=== PATIENT | male | born 1995 | race Caucasian/White ===

== ENCOUNTER 2022-12-10 05:30 | Inpatient (IN) | payer MEDICAID ==
[2022-12-10] VITALS (11 sets, daily range): BP systolic 114–133; BP diastolic 71–75; PULSE 59–82; RESP 16; TEMP 97.7–98.3; O2SAT 95–99
[~2022-12-10] VITALS: Ht 198.1 cm; Wt 136.1 kg
--- NOTE | 2022-12-10 05:40 | NUR ---
Called poison control regarding patient taking 30-40 300mg gabapentin, 10 shots liquor, 6 pack beer. Per poison control, recommendations for 4-6 hour observation, labs: tylenol, aspirin, and alcohol levels and baseline EKG. ERMD was notified and was agreeable.
--- NOTE | 2022-12-10 05:45 | NUR ---
27 YO M BIBA DUE TO SUICIDE ATTEMPT BY TAKING 30-40 GABAPENTIN 300 MG, DRINKING 10 SHOTS ALCOHOL, AND DRINKING 6 PACK IN BEER. PT ARRIVED BY AMBULANCE IN SOFT RESTRAINTS. PT NON COMBATIVE AND QUIET DEMEANOR UPON ARRIVAL. ON 5150 72 HR HOLD. PT ON BEDSIDE GEOPHYSICAL ENGINEER. 2LPM/NC APPLIED FOR SPO2 91% SUSTAINED ON ROOM AIR. PT WITHIN VIEW OF NURSES STATION. NKDA NO MED HX
[2022-12-10] MEDS ORDERED: NACL 0.9% 1,000 ML IV ONE (05:50)
--- NOTE | 2022-12-10 05:57 | NUR ---
PT ON BEDSIDE MONITOR. 2L O2 NC APPLIED. SPO2 98%. RESP EVEN AND UNLABORED. ALL PT BELONGINGS BAGGED AND TAGGED. ITEMS FROM ROOM EXCEPT LABORER DRIVER WIRES WERE REMOVED FOR PT SAFTEY. PT ACTING APPROPIATELY AND ANSWERING ALL QUESTIONS.
[2022-12-10 06:00] LABS: BASOPHILS # (AUTO) 0.1 K/uL (0.00-0.22); EOSINOPHILS # (AUTO) 0.4 K/uL (0-0.4); EOSINOPHILS % (AUTO) 5.9 % (0.0-4.0); HEMATOCRIT 41.8 % (36-52); LYMPHOCYTES # (AUTO) 2.1 K/uL (2.0-11.5); LYMPHOCYTES % (AUTO) 34.4 % (20.5-51.1); MEAN CORPUSCULAR HEMOGLOBIN 30 pg (27-31); MEAN CORPUSCULAR HGB CONC 34 g/dL (33-37); MEAN CORPUSCULAR VOLUME 88.1 fL (80-94); MONOCYTES # (AUTO) 0.6 K/uL (0.8-1.0); MONOCYTES % (AUTO) 9.1 % (1.7-9.3); NEUTROPHILS % (AUTO) 49.6 % (42.2-75.2); PLATELET COUNT (AUTO) 263 K/uL (140-450); RED BLOOD CELL COUNT(AUTO) 4.75 MIL/uL (4.20-6.10); RED CELL DISTRIBUTION WIDTH 13.6 % (11.6-13.7); WHITE BLOOD COUNT (AUTO) 6.1 K/uL (4.8-10.8)
--- NOTE | 2022-12-10 06:00 | NUR ---
COVID SWABS COLLECTED AND SENT TO LAB
[2022-12-10 06:14] LABS: ANION GAP 13.4 (8-16); ASPARTATE AMINOTRANSFERASE 20 U/L (15-37); CARBON DIOXIDE 28.9 mmol/L (21-32); CHLORIDE 103 mmol/L (98-107); CREATININE 0.9 mg/dL (0.6-1.3); GFR ARICAN-AMERICAN 128 mL/min (>90); GLUCOSE 95 mg/dL (74-106); POTASSIUM 3.3 mmol/L (3.5-5.1); SODIUM SERUM 142 mmol/L (136-145); TOTAL BILIRUBIN 0.4 mg/dL (0.0-1.0); UREA NITROGEN, BLOOD 11 mg/dL (7-18)
[2022-12-10 06:16] LABS: SALICYLATE < 2.8 mg/dL (2.8-20.0)
--- NOTE | 2022-12-10 07:14 | NUR ---
Pt report given to SUKUMAR ALEXANDER. Transfer of care at this time.
--- NOTE | 2022-12-10 07:16 | NUR ---
CONTINUATION OF CARE AT THIS POINT. REPORT RECIEVED FROM CATHERINE PATINO.
--- NOTE | 2022-12-10 07:56 | NUR ---
PT SLEEPING IN UPRIGHT POSITION, AROUSABLE TO TOUCH, CHEST RISE/FALL NOTED, ON HOSPITALITY HOUSEKEEPER, AWAITING FOR BED ASSIGNMENT TO TELE. SAFETY MAINTAINED, CALL LIGHT WITHIN REACH.
--- NOTE | 2022-12-10 08:56 | NUR ---
MOJGAN FROM POISON CONTROL CALLED FOR UPDATED VS, STATUS/CONDITION, CONTINUE MONITORING WITH SUPPORTIVE CARE TILL BASELINE.
--- NOTE | 2022-12-10 10:02 | NUR ---
NO CHANGE IN CONDITION, PT SLEEPING IN UPRIGHT POSITION, AROUSABLE TO TOUCH, ON MARKETING COORDINATOR, VS: BP117/62, P 60, R13, O2-98/2L, SAFETY MAINTAINED. CALL LIGHT IN REACH. AWAITING ADMIT BED ASSIGNMENT.
[2022-12-10] MEDS ORDERED: MAG SULF 2000 MG/WATER PREMIX 50 ML IV PRN (11:10)
[2022-12-10] MEDS ORDERED: ONDANSETRON 4 MG/2 ML VIAL IVP PRN (11:10)
[2022-12-10] MEDS ORDERED: ACETAMINOPHEN 325 MG TAB PO PRN (11:10)
[2022-12-10] MEDS ORDERED: POTASSIUM CHLORIDE 10 MEQ TABER PO PRN (11:10)
[2022-12-10] MEDS ORDERED: MORPHINE SULFATE 2 MG/ML SYR IVP PRN (11:10)
[2022-12-10] MEDS ORDERED: DOCUSATE SODIUM 100 MG GELCAP PO PRN (11:10)
[2022-12-10] MEDS ORDERED: LORazepam 2 MG/ML VIAL IVP PRN (11:10)
--- NOTE | 2022-12-10 11:11 | NUR ---
PT SLEEPING, CHEST RISE/FALL UNLABORED NOTED, AT BEDSIDE CRYING. PT ON REFINERY TECHNICIAN, SAFETY MAINTAINED, CALL LIGHT WITHIN REACH.
[2022-12-10 12:19] LABS: BARBITURATE, URINE NEGATIVE ng/ml (NEG <=200); BENZODIAZEPINE, URINE NEGATIVE ng/mL (NEG <=200); CANNABINOID, URINE POSITIVE ng/mL (NEG <=50); COCAINE, URINE NEGATIVE ng/mL (NEG <=300); OPIATE, URINE NEGATIVE ng/mL (NEG <=2000); PHENCYCLIDINE SCREEN,URINE NEGATIVE ng/mL (NEG <=25)
--- NOTE | 2022-12-10 13:11 | NUR ---
PT SLEEPING IN UPRIGHT POSITION, AROUSABLE TO TOUCH, CHEST RISE/FALL NOTED, ON TRANSIT COACH OPERATOR, AWAITING FOR BED ASSIGNMENT TO TELE. SAFETY MAINTAINED, CALL LIGHT WITHIN REACH.
--- NOTE | 2022-12-10 15:05 | NUR ---
NO CHANGE IN CONDITION. PT SLEEPING, CHEST RISE/FALL NOTED, UNLABORED BREATHING. SAFETY MAINTAINED, CALL LIGHT WITHIN REACH.
--- NOTE | 2022-12-10 17:01 | NUR ---
PT AWAKE, AT BEDSIDE, PT REQUESTED A SANDWISH, TOLERATED WELL. AOX4,NAD NOTED, ON AERONAUTICAL PROJECT ENGINEER, CALL LIGHT IN REACH.
--- NOTE | 2022-12-10 19:16 | NUR ---
Pt report given to SAMARA PATINO. Transfer of care at this time.
--- NOTE | 2022-12-10 19:30 | NUR ---
Pt Hand over from AM shift. On bed, comfortably sleeping with rise and fall of chest noted.
--- NOTE | 2022-12-10 19:35 | NUR ---
Note adrian in ED - 12/10/22 at 2039 by [email or web address] Pt Hand over from AM shift. Comfortbalty sleeping with rise and fall of chest noted.
--- NOTE | 2022-12-10 20:39 | NUR ---
Pt asleep comfortably at bed with rise and fall of chest noted.
--- NOTE | 2022-12-10 21:00 | NUR ---
Pt to [facility] via bj with EMT and RN
--- NOTE | 2022-12-10 22:00 | NUR ---
27/M Admitted from ED with CHIEF COMPLAINT OF OVERDOSE. PER PATIENT, TOOK ABOUT 30-40 GABAPENTIN 300 MG PO TABS. 5150 PRESENT ON ADMISSION ISSUED ON 12/10/22 AT 0507. VSS STABLE. HEAD TO TOE ASSESSMENT COMPELTED WITH BULMARO PATINO. INITIAL ADMISSION DOCUMENTATION COMPLETED. PERSONAL BELONGINGS WITH SECURITY. PER ED SAMARA PATINO, MRSA SWAB HAS BEEN COLLECTED. ORIENTED TO BED, BATHROOM, VISITING HOURS, AND ID BRACELET ON. 1:1 SITTER PRESENT.
--- NOTE | 2022-12-10 22:00 | NUR ---
Patient's Plan of Care was discussed and reviewed with AMANDA MERCEDES
[2022-12-10] MEDS: ZOLPIDEM 10 MG TAB PO PRN (22:17)
--- NOTE | 2022-12-10 22:20 | NUR ---
ADMINISTERED POTASSIUM CHLORIDE 40 MEQ D/T K+ AT 3.3 PER MD ORDER. TOLERATED WELL. DENIES PAIN AT THIS TIME. RESPIRATIONS EVEN AND UNLABORED WITH NO APPARENT S/SX OF ACUTE DISTRESS. ALL SAFETY MEASURES IN PLACE. BED IN LOW/LOCKED POSITION. SIDE RAILS X2 UP. 1:1 SITTER PRESENT. WILL CONTINUE TO MONITOR.
[2022-12-11] VITALS: BP 117/72; PULSE 66; RESP 14; TEMP 98.5; O2SAT 98
--- NOTE | 2022-12-11 01:00 | NUR ---
STABLE AND ASLEEP WITH NO FACIAL GRIMACING. CHEST IS RISING AND FALLING SYMMETRICALLY. RESPIRATIONS EVEN AND UNLABORED WITH NO APPARENT S/SX OF ACUTE DISTRESS. ALL SAFETY MEASURES IN PLACE. BED IN LOW/LOCKED POSITION. SIDE RAILS X2 UP. 1:1 SITTER PRESENT. WILL CONTINUE TO MONITOR.
--- NOTE | 2022-12-11 03:00 | NUR ---
PATIENT IS STABLE AND ASLEEP IN SUPINE POSITION WITH NO FACIAL GRIMACING. FLACC=0. CHEST IS RISING AND FALLING SYMMETRICALLY. RESPIRATIONS EVEN AND UNLABORED WITH NO APPARENT S/SX OF ACUTE DISTRESS. ALL SAFETY MEASURES IN PLACE. BED IN LOW/LOCKED POSITION. SIDE RAILS X2 UP. 1:1 SITTER PRESENT. WILL CONTINUE TO MONITOR.
[2022-12-11 04:00] VITALS: BP 115/50; PULSE 61; PULSE 66; RESP 16; TEMP 97.7; O2SAT 99
--- NOTE | 2022-12-11 05:00 | NUR ---
STABLE AND ASLEEP WITH NO FACIAL GRIMACING. FLACC=0. CHEST IS RISING AND FALLING SYMMETRICALLY. RESPIRATIONS EVEN AND UNLABORED WITH NO APPARENT S/SX OF ACUTE DISTRESS. ALL NEEDS MET AT THIS TIME. ALL SAFETY MEASURES IN PLACE. BED IN LOW/LOCKED POSITION. SIDE RAILS X2 UP. 1:1 SITTER PRESENT. WILL CONTINUE TO MONITOR.
[2022-12-11 06:18] LABS: BASOPHILS # (AUTO) 0.1 K/uL (0.00-0.22); EOSINOPHILS # (AUTO) 0.5 K/uL (0-0.4); EOSINOPHILS % (AUTO) 7.5 % (0.0-4.0); HEMATOCRIT 41.2 % (36-52); HEMOGLOBIN 13.8 g/dL (12.0-18.0); LYMPHOCYTES # (AUTO) 1.7 K/uL (2.0-11.5); MEAN CORPUSCULAR HEMOGLOBIN 30 pg (27-31); MEAN CORPUSCULAR HGB CONC 33 g/dL (33-37); MEAN CORPUSCULAR VOLUME 88.6 fL (80-94); MONOCYTES # (AUTO) 0.5 K/uL (0.8-1.0); MONOCYTES % (AUTO) 8.5 % (1.7-9.3); NEUTROPHILS # (AUTO) 3.3 K/uL (1.8-7.7); PLATELET COUNT (AUTO) 232 K/uL (140-450); RED BLOOD CELL COUNT(AUTO) 4.65 MIL/uL (4.20-6.10); RED CELL DISTRIBUTION WIDTH 13.6 % (11.6-13.7); WHITE BLOOD COUNT (AUTO) 6.1 K/uL (4.8-10.8)
[2022-12-11 06:34] LABS: CARBON DIOXIDE 29.1 mmol/L (21-32); CREATININE 0.9 mg/dL (0.6-1.3); POTASSIUM 4.1 mmol/L (3.5-5.1)
--- NOTE | 2022-12-11 07:01 | NUR ---
ENDORSED PATIENT TO CARLA RN FOR CONTINUITY OF CARE. PATIENT IS STABLE. 1:1 SITTER PRESENT.
--- NOTE | 2022-12-11 07:52 | NUR ---
RECEIVED PATIENT FROM PM NURSE FOR CONTINUATION OF CARE. PATIENT SEEN ON BED ASLEEP NORMAL RISE AND FALL OF CHEST NOTED. PATIENT'S VITALS STABLE. PATIENT SITTER PRESENT
[2022-12-11 08:00] VITALS: BP 110/69; PULSE 58; PULSE 69; RESP 18; TEMP 97.9; O2SAT 99
--- NOTE | 2022-12-11 09:03 | NUR ---
PATIENT HAS BEEN SCREENED AND CATEGORIZED LOW NUTRITION RISK. PATIENT WILL BE SEEN WITHIN 7 DAYS OF ADMISSION. 12/17/[address]
[2022-12-11] MEDS: MULTIVITAMIN 1 TAB PO SCH (09:53)
[2022-12-11] MEDS: THIAMINE 100 MG TAB PO SCH (09:53)
[2022-12-11] MEDS: FOLIC ACID 1 MG TAB PO SCH (09:53)
[2022-12-11 12:00] VITALS: BP 132/79; PULSE 62; PULSE 74; RESP 18; TEMP 97.3; O2SAT 97
--- NOTE | 2022-12-11 13:00 | NUR ---
PATIENT SEEN ON BED ASLEEP. NORMAL RISE AND FALL OF CHEST. PATIENT WOKEN UP TO CHECK TELEMETRY LEADS. PATIENT VERBALIZED NO CONCERNS
[2022-12-11 16:00] VITALS: BP 120/62; PULSE 59; RESP 16; TEMP 97.7; O2SAT 98
--- NOTE | 2022-12-11 19:00 | NUR ---
ENDORSED PATIENT TO PM NURSE FOR CONTINUATION OF CARE
--- NOTE | 2022-12-11 19:00 | NUR ---
ASSUMED CONTINUITY OF CARE. INITIAL ASSESSMENT DONE. CALM, QUIET, COOPERATIVE. NO SUICIDAL IDEATION OBSERVED. NO C/O PAIN. NO SOB, NOTED. SPEECH CLEAR. SKIN WARM, DRY, AND INTACT. SALINE ON RIGHT AC GAUGE #20 PATENT AND INTACT. KEEP COMFORTABLE ON BED. KEEP ENVIRONMENT SAFE. WILL MONITOR CLOSELY (1:1) FOR SUICIDAL PREVENTION.
--- NOTE | 2022-12-11 19:16 | NUR ---
PT. CAME AND HAD CONVERSATION WITH THE PT.. NO UNTOWARD BEHAVIOR OBSERVED.
[2022-12-11 20:00] VITALS: BP 124/90; PULSE 51; PULSE 60; RESP 16; TEMP 98.5; O2SAT 98
[2022-12-11] MEDS: ZOLPIDEM 10 MG TAB PO PRN (20:58)
--- NOTE | 2022-12-11 20:58 | NUR ---
ASKED FOR SLEEPING PILLS. MEDICATED PER MD ORDER. TOLERATED WELL. NO INITIAL DRUG REACTION NOTED. WILL MONITOR.
--- NOTE | 2022-12-11 21:38 | NUR ---
PT. LEFT. PT. SITTING ON THE SIDE OF THE BED. NO SUICIDAL IDEATION OBSERVED. Addendum: 12/11/22 at 2145 by Kan Dorantes LVN LVN WRONG ENTRY. ENTERED WRONG TIME. ACTUAL TIME WAS 2053.
--- NOTE | 2022-12-11 22:30 | NUR ---
SLEEPING WELL AT THIS TIME. NO RESPIRATORY DISTRESS NOTICED. CONTINUE TO MONITOR CLOSELY 1:1.
[2022-12-12] VITALS: BP 118/73; PULSE 51; RESP 16; TEMP 97.3; O2SAT 98
--- NOTE | 2022-12-12 03:00 | NUR ---
SEEN ASLEEP. NO SOB, NOTED. KEEP COMFORTABLE ON BED.
--- NOTE | 2022-12-12 05:58 | NUR ---
THORACIC SURGEON CAME FOR AM BLOOD DRAW. CALM AND COOPERATIVE. TOLERATED WELL. NO C/O PAIN. CONTINUE MONITORING CLOSELY 1:1.
[2022-12-12 06:29] LABS: BASOPHILS # (AUTO) 0.1 K/uL (0.00-0.22); BASOPHILS % (AUTO) 1.1 % (0.0-2.0); EOSINOPHILS # (AUTO) 0.4 K/uL (0-0.4); EOSINOPHILS % (AUTO) 6.2 % (0.0-4.0); HEMATOCRIT 42.9 % (36-52); HEMOGLOBIN 14.4 g/dL (12.0-18.0); LYMPHOCYTES # (AUTO) 1.8 K/uL (2.0-11.5); LYMPHOCYTES % (AUTO) 27.9 % (20.5-51.1); MEAN CORPUSCULAR HEMOGLOBIN 30 pg (27-31); MEAN CORPUSCULAR HGB CONC 34 g/dL (33-37); MEAN CORPUSCULAR VOLUME 89.2 fL (80-94); MONOCYTES # (AUTO) 0.6 K/uL (0.8-1.0); MONOCYTES % (AUTO) 8.6 % (1.7-9.3); NEUTROPHILS # (AUTO) 3.7 K/uL (1.8-7.7); NEUTROPHILS % (AUTO) 56.2 % (42.2-75.2); PLATELET COUNT (AUTO) 250 K/uL (140-450); RED BLOOD CELL COUNT(AUTO) 4.81 MIL/uL (4.20-6.10); RED CELL DISTRIBUTION WIDTH 13.6 % (11.6-13.7); WHITE BLOOD COUNT (AUTO) 6.6 K/uL (4.8-10.8)
[2022-12-12 06:50] LABS: ANION GAP 8.4 (8-16); CARBON DIOXIDE 30.4 mmol/L (21-32); CREATININE 0.9 mg/dL (0.6-1.3); POTASSIUM 3.8 mmol/L (3.5-5.1)
--- NOTE | 2022-12-12 07:00 | NUR ---
RECEIVED PT FROM WEIGHER PRODUCTION FOR CONTINUITY OF CARE. ALERT AND ORIENTED X 4. RESP. EVEN AND UNLABORED. IV SITE INTACT. ON SALINE LOCK. ON 1:1 SITTER. NO BEHAVIORAL PROBLEM AT THIS TIME. NO C/O PAIN OR DISCOMFORT. WILL CONTINUE TO MONITOR.
[2022-12-12 08:00] VITALS: BP 125/77; PULSE 52; RESP 20; TEMP 97.9; O2SAT 100
[2022-12-12] MEDS: MULTIVITAMIN 1 TAB PO SCH (08:21)
[2022-12-12] MEDS: THIAMINE 100 MG TAB PO SCH (08:21)
[2022-12-12] MEDS: FOLIC ACID 1 MG TAB PO SCH (08:21)
--- NOTE | 2022-12-12 08:21 | NUR ---
SCHEDULED MEDICATIONS GIVEN. TOLERATED WELL.
--- NOTE | 2022-12-12 08:38 | NUR ---
Technical Buyer: Patient continues to have an active 5150 that will tomorrow morning. The patient has an order for a telepsyche. There is also a clinical packet that was sent to the [facility] for assistance with placement. Telephone call made to SUKUMAR Laura about the status of the telepsyche. Per nurse, the telepsyche has not been called, but she will call in for the telepsyche today. I advised her that the 5150 hold will tomorrow, so the telepsyche remains necessary. Follow up call made to Yamilka at the [facility]. per Yamilka, the patient has [facility] [place], therefore the clinical packet was sent out to th followin. Georgette Hanson 2. [facility] 3. [facility] 4. [facility] 5. [place] marketing services manager will continue to remain available for the patient as needs arise.
--- NOTE | 2022-12-12 10:05 | NUR ---
Permit Specialist: Met with patient ate bedside. I introduced myself to him and advised him of the follow up that I had done this morning thus far. He was pleasant and engaging. I inquired about his current mental state. Per patient, he states he is not having any thoughts of self harm or harm to others. I inquired about his , and he stated she has not come in yet, but she would be by later. At this time, the patient is aware that telepsyche is still pending.
--- NOTE | 2022-12-12 11:55 | NUR ---
SEEN BY DR. RILEY.
--- NOTE | 2022-12-12 15:50 | NUR ---
TELEPSYCH WITH DR. BURNETTE.
--- NOTE | 2022-12-12 16:03 | NUR ---
TELEPSYCH CONSULT DONE BY DR. BURNETTE. CLEARED FOR DISCHARGE AT HIS STANDPOINT. DR. RILEY NOTIFIED, AWAITING FOR RESPONSE.
--- NOTE | 2022-12-12 19:14 | NUR ---
PT CLEARED FROM TELE PSYCH. PT REQUESTED TO BE DISCHARGE. DR. RILEY NOTIFIED, AGREED WITH DISCHARGE ORDER. NOTED AND CARRIED OUT.
[2022-12-12] MEDS ORDERED: ZOLP10TA1 PO (19:27)
--- NOTE | 2022-12-12 19:45 | NUR ---
DISCHARGED PAPERWORKS DISCUSS AND SIGNED BY PT. ID BAND AND IV REMOVED.
--- NOTE | 2022-12-12 20:02 | NUR ---
PT DISCHARGED TO HOME. TRANSPORTED VIA PRIVATE CAR, ACCOMPANIED BY HIS . ALERT AND ORIENTED X 4. RESP. EVEN AND UNLABORED. SKIN INTACT. REMAINS STABLE.
== END 2022-12-12 20:02 | disposition home or self-care (01) | DRG 817 ==
LOC: MED 05:30 → MTU 11:05
PROVIDERS: ADMIT Family Medicine; ATTEND Family Medicine
DX: T42.6X2A Poisoning by other antiepileptic and sedative-hypnotic drugs, intentional self-harm, initial encounter (principal); E83.51 Hypocalcemia; E87.6 Hypokalemia; F32.A Depression, unspecified; Y92.89 Other specified places as the place of occurrence of the external cause; Z20.822 Contact with and (suspected) exposure to COVID-19
CPT/HCPCS: 36415; 80048; 80053; 80305; 83735; 85025; 87081; 93005; 96360; 99285; G0480; G0482